=== PATIENT | male | born 1965 | race Caucasian/White ===

== ENCOUNTER 2022-11-04 05:51 | Day surgery (SDC) | payer OTHER ==
[2022-11-01 14:13] VITALS: BMI 55.6
--- NOTE | 2022-11-03 10:06 | P.HPOR ---
History of Present Illness H&P Date: 11/03/22 Chief Complaint: Right shoulder pain The patient's 57-year-old [id number] male who presents with right shoulder pain after a previous injury. He's having pain with overhead activity and at night. He underwent therapy in addition has tried medications with only partial temporarily. He is having significant night symptoms. Review of Systems Negative except as in HPI Past Medical History Past Medical History: GERD/Reflux, Osteoarthritis (OA), Sleep Apnea/CPAP/BIPAP, Thyroid Disorder Additional Past Medical History / Comment(s): kidney stone. takes lisinopril for frequent morning headaches, but blood pressure is border line per the pt History of Any Multi-Drug Resistant Organisms: None Reported Past Surgical History: Appendectomy, Back Surgery Additional Past Surgical History / Comment(s): kidney stone surg. Past Anesthesia/Blood Transfusion Reactions: No Reported Reaction Past Psychological History: No Psychological Hx Reported Smoking Status: Former smoker Past Alcohol Use History: Rare Additional Past Alcohol Use History / Comment(s): quit smoking 09/22/2000 Past Drug Use History: None Reported - Past Family History Father Family Medical History: Myocardial Infarction ([place]) Additional Family Medical History / Comment(s): fatal [place] Mother Family Medical History: Hypertension Medications and Allergies Home Medications Medication Instructions Recorded Confirmed Type Cholecalciferol [Vitamin D3 (25 25 mcg PO DAILY 11/01/22 11/01/22 History Mcg = 1000 Iu)] Diclofenac Sodium Gel [Voltaren 2 gm TOPICAL DIRECTED 11/01/22 11/01/22 History Gel] Gabapentin 300 mg PO BID 11/01/22 11/01/22 History Levothyroxine Sodium 88 mcg PO QAM 11/01/22 11/01/22 History Lidocaine 5% Patch [Lidoderm] 1 patch TOPICAL DAILY 11/01/22 11/01/22 History Loratadine [Claritin] 10 mg PO HS 11/01/22 11/01/22 History Meloxicam [Mobic] 15 mg PO DAILY 11/01/22 11/01/22 History Omeprazole 20 mg PO HS 11/01/22 11/01/22 History lisinopriL [Zestril] 20 mg PO HS 11/01/22 11/01/22 History Allergies Allergy/AdvReac Type Severity Reaction Status Date / Time No Known Allergies Allergy Verified 11/01/22 13:59 Physical Examination - Shoulder right Tenderness with palpation: anterior Pain: with abduction, with forward flexion ROM: forward flexion: 140 degrees ROM: internal rotation: lower lumbar ROM: external rotation: 50 degrees Crepitus with motion: Yes Strength: abduction: 4/5 Strength: external rotation: 4/5 Tests: internal impingement tests: positive, external impingment tests: positive Results The patient is a well-developed well-nourished male approximately 6 foot tall, 382 pounds of endomorphic habitus. HEENT exam is nonfocal, neck supple. On examination right shoulder is tender about the anterior subacromial space. He has moderate subacromial crepitus. Rob and Neer sign are positive. Speed test is positive. His distal neurovascular status appears intact in the right upper extremity. - Diagnostic results Shoulder MRI: image reviewed (Right shoulder MRI is reviewed and shows evidence of a full-thickness tear involving the anterior aspect of the supraspinatus. A posterior superior labral tear was also noted.) Assessment and Plan Assessment: Right shoulder impingement/symptomatic rotator cuff tear Right proximal bicipital tendinosis/posterior labral tear Plan: I talked the patient relates regarding his condition and treatment options. This point he's quite symptomatic having pain and weakness despite conservative measures. After thorough discussion he opts to pursue surgery. We'll plan to proceed with right shoulder arthroscopy with subacromial decompression, rotator cuff repair, possible biceps tenodesis. Risks and benefits were discussed at length in layman's terms. We will likely perform as an outpatient procedure.
[~2022-11-04 05:51] MED LIST: DEXAMETHASONE SOD PHOSPHATE 4 MG/ML 1 ML VIAL IV ONE; LACTATED RINGERS 1,000 ML IV SCH; LIDOCAINE 1% (10MG/ML) FOR IV START INTRADERMA PRN; MIDAZOLAM 2 MG/2 ML VIAL IV PRN; ONDANSETRON 4 MG/2 ML VIAL IVP ONE; ceFAZolin 3 GM in SODIUM CHLORIDE 0.9% 100 ML IVPB PRN
[2022-11-04] MEDS ORDERED: ONDANSETRON 4 MG/2 ML VIAL IVP ONE (06:49)
[2022-11-04] MEDS ORDERED: DEXAMETHASONE SOD PHOSPHATE 4 MG/ML 1 ML VIAL IVP ONE (06:50)
[2022-11-04] MEDS ORDERED: MIDAZOLAM 2 MG/2 ML VIAL IVP ONE (07:02)
[2022-11-04] MEDS ORDERED: ROPIVACAINE 5 MG/ML 30 ML VIAL ONE (07:21)
[2022-11-04] MEDS ORDERED: LIDOCAINE 2% INJ 20 MG/ML (2 ML VIAL) ONE (07:21)
[2022-11-04] MEDS ORDERED: PROPOFOL 10 MG/ML 20 ML VIAL IV ONE (07:21)
[2022-11-04] MEDS ORDERED: fentaNYL (PF) 50 MCG/ML 2 ML AMP ONE (07:21)
[2022-11-04] MEDS ORDERED: PHENYLEPHRINE-0.9% NACL SYG 1,000 MCG/10 ML SYRINGE ONE (07:21)
[2022-11-04] MEDS ORDERED: SUCCINYLCHOLINE CHLORIDE 200 MG/10 ML VIAL IV ONE (07:21)
[2022-11-04] MEDS ORDERED: DEXAMETHASONE SOD PHOSPHATE 4 MG/ML 1 ML VIAL ONE (07:21)
[2022-11-04] MEDS ORDERED: EPINEPHrine (PF) 1 ML in SODIUM CHLORIDE 0.9% IRRIGATIO 3,000 ML IRRIGATION ONE ×8 (08:05)
--- NOTE | 2022-11-04 08:46 | P.OP ---
Date of Procedure: 11/04/22 Preoperative Diagnosis: Right shoulder impingement/biceps tendinosis/partial thickness rotator cuff tear Postoperative Diagnosis: Same Procedure(s) Performed: Right shoulder arthroscopic subacromial decompression/biceps tenodesis/rotator cuff debridement Implants: Arthrex 4.75 mm swivel lock anchor 1 [facility]: Aleksey Oliva Yard Jockey #1: Christiano Arreola Estimated Blood Loss (ml): 10 Pathology: none sent Condition: stable Disposition: PACU Indications for Procedure: The patient is a 57-year-old male presents with progressive right shoulder pain secondary to a previous injury despite conservative measures. A discussion of the risks and benefits of operative intervention versus continued conservative measures was made with the patient. He opted to proceed with surgery. Operative risks to include infection, neurovascular injury, development of blood clots, possible postoperative stiffness, possible need for subsequent procedures was discussed. Informed consent was obtained. Operative Findings: As below Description of Procedure: The patient was brought to the operating room, and after induction of general anesthesia was placed in a beachchair position. A preoperative interscalene block was placed for postoperative analgesia. I examined the right shoulder. There was no gross block to passive motion or gross glenohumeral instability. The right upper extremity was prepped and draped in normal fashion. The bony outlines the acromion, distal clavicle, and coracoid process were outlined with a skin marker. The glenohumeral joint was inflated with 50 mL of saline utilizing a spinal needle from posterior approach. A posterior portal was made through a 5 mm skin incision 1 cm medial and inferior to the posterior lateral border time. A blunt trocar was used to easily into the joint. Diagnostic arthroscopy was performed. An anterior portal was made just lateral to the coracoid process entering the joint above the subscapularis tendon. The subscapularis tendon appeared to be intact. Anterior labrum was intact. The inferior recess was inspected. The posterior labrum was intact. There was a high-grade partial-thickness tear of the long head of the biceps involving interarticular portion. It was elected to proceed with biceps tenodesis. The biceps was tagged with a fiber loop stitch and was released from the superior labrum with electrocautery and was allowed to retract to the bicipital groove. A 4.75 mm swivel lock anchor was placed in the bicipital groove to secure the biceps. Good purchase was obtained. On inspection the rotator cuff, a partial thickness tear involving the anterior aspect the supraspinatus was noted involving approximately 10-15% of the tendon thickness. This was debrided back to stable base with a motorized shaver. The posterior portion the rotator cuff appeared to be intact. The arthroscope was then placed into the subacromial space. There was significant bursitis that was debrided with a motorized shaver. A lateral portal was made 2 centimeters inferior to the anterior lateral border of the acromion. The soft tissue on the undersurface of the acromion was debrided with a motorized shaver and electrocautery clearly defining the anterior medial and lateral borders as well as the distal clavicle. An anterior inferior acromioplasty was performed with a motorized malcom starting anterolateral, then extending this posteriorly, then extending this medially. I converted to a flat acromion and this was verified in the posterior and lateral viewing portals. The rotator cuff was inspected on the bursal surface. There was no significant full-thickness tear. The arthroscope was then removed. The portals were closed with simple 3-0 nylon sutures. A sterile dressing was applied in addition to a brace. The patient was then awoken from general anesthesia and transferred to recovery room in good condition. Blood loss was estimated at 10 mL. No complications were incurred. Sponge and needle counts were correct in the case. Christiano MOHR assisted and the major components of the case to include arm positioning, decompression and biceps tenodesis.
[2022-11-04] MEDS ORDERED: LACTATED RINGERS 1,000 ML IV ONE (08:53)
[2022-11-04 09:02] VITALS: TEMP 97.3
[2022-11-04] MEDS: HYDROmorphone 0.5 MG/0.5 ML SYRINGE IVP PRN ×2 (09:06→09:20)
[2022-11-04 09:28] VITALS: RESP 16
--- NOTE | 2022-11-04 09:43 | P.ANPRN ---
Procedure Note - Anesthesia - Nerve Block Performed Right Interscalene Time Out Performed: Yes (06:55) Date of Procedure: 11/04/22 Procedure Start Time: :55 Procedure Stop Time: 07:01 Location of Patient: PreOp Indication: Acute Post-Operative Pain, Requested by Surgeon (Dr Oliva) Sedation Type: Sedate with meaningful contact maintained Preparation: Sterile Prep Position: Supine Catheter: None Needle Types: Pajunk Needle Gauge: Other (see comment) (22g) Ultrasound used to visualize needle placement: Yes Ultrasound used to observe medication spread: Yes Injectate: 0.5% Ropivacaine (see comment for volume) (20cc +Decadron 4mg) Blood Aspirated: No Pain Paresthesia on Injection Noted: No Resistance on Injection: Normal Image Stored and Saved: Yes Events: Uneventful and Well Tolerated
[2022-11-04] MEDS ORDERED: HYDROcodone/APAP 7.5-325MG 1 EACH TAB ONE (10:11)
[2022-11-04] MEDS ORDERED: HYDROcodone/APAP 7.5-325MG 1 EACH TAB PO ONE (10:13)
[2022-11-04 11:24] VITALS: BP 125/72; PULSE 85
== END 2022-11-04 11:26 | disposition home or self-care (01) ==
LOC: OR 05:51
PROVIDERS: ATTEND Orthopaedic Surgery
DX: S46.111A Strain of muscle, fascia and tendon of long head of biceps, right arm, initial encounter (principal); S46.011A Strain of muscle(s) and tendon(s) of the rotator cuff of right shoulder, initial encounter; M75.41 Impingement syndrome of right shoulder; M75.51 Bursitis of right shoulder; X50.0XXA Overexertion from strenuous movement or load, initial encounter; G89.18 Other acute postprocedural pain; I10 Essential (primary) hypertension; K21.9 Gastro-esophageal reflux disease without esophagitis; E07.9 Disorder of thyroid, unspecified; E66.01 Morbid (severe) obesity due to excess calories; Z68.43 Body mass index [BMI] 50.0-59.9, adult; G47.30 Sleep apnea, unspecified; F10.20 Alcohol dependence, uncomplicated; Z87.442 Personal history of urinary calculi; Z87.891 Personal history of nicotine dependence; Z79.1 Long term (current) use of non-steroidal anti-inflammatories (NSAID); Z79.890 Hormone replacement therapy; Z79.899 Other long term (current) drug therapy
CPT/HCPCS: 29828; 29826; 64415; J2250; J0330; J1100; J0690; J2405; J0171; J3010; J2795; J2370; J2704; J1170; J2001